=== PATIENT | male | born 1975 | race Caucasian/White ===

== ENCOUNTER → 2017-03-15 | Outpatient (REF) ==
--- NOTE | 2017-03-15 15:21 | REP ---
RIGHT KNEE SERIES: Five views. HISTORY: Degenerative disease. FINDINGS: No comparison views. The patient is status post right knee arthroplasty. Metallic patellar, femoral, and tibial arthroplasty components are well aligned with respect to each other and their [place] bones. There is no radiographic evidence of loosening or infection. Normal alignment. IMPRESSION: Status post right knee arthroplasty. Signed by Cortes Henriquez MD 03/15/2017 05:04 P
== END ==
LOC: M SMT 14:31
PROVIDERS: ATTEND Internal Medicine
DX: M54.5 Low back pain (principal)